=== PATIENT | female | born 1980 | race American Indian/Alaskan Native ===

== ENCOUNTER 2018-07-02 14:16 | Emergency (ER) | payer BC, OTHER ==
[2018-07-02 14:28] VITALS: RESP 16; O2SAT 100
[2018-07-02] MEDS ORDERED: Sodium Chloride 0.9% 1,000 ML IV STA (14:54)
--- NOTE | 2018-07-02 14:58 | ED PDOC ---
HPI: Chest Pain Time Seen by Provider: 07/02/18 14:41 Chief Complaint (Nursing): Chest Pain History Per: Patient Onset/Duration Of Symptoms: Hrs (2) Current Symptoms Are (Timing): Still Present Severity: Moderate Associated Symptoms: denies: Dyspnea, Syncope Modifying Factors: None Exacerbating Factors: None Alleviating Factors: None Additional Complaint(s): Chest pain assoc with palpitations x 2 hrs. Has been tx'ed for resp infection, has been on prednisone x 12 days. Non-productive cough. Denies fever or SOB. Denies calf pain or swelling. Denies lightheadedness. Past Medical History Vital Signs: Last Vital Signs Temp 98.0 F 07/02/18 14:26 Pulse 125 H 07/02/18 14:26 Resp 16 07/02/18 14:26 BP 175/101 H 07/02/18 14:26 Pulse Ox 100 07/02/18 14:26 - Medical History PMH: Asthma - Family History Family History: States: Unknown Family Hx - Allergies Allergies/Adverse Reactions: Allergies Allergy/AdvReac Type Severity Reaction Status Date / Time codeine Allergy RASH Verified 07/02/18 14:26 Review of Systems ROS Statement: Except As Marked, All Systems Reviewed And Found Negative Constitutional: Negative for: Fever Cardiovascular: Positive for: Chest Pain, Palpitations Respiratory: Positive for: Cough Neurological: Positive for: Dizziness Physical Exam - Reviewed Nursing Documentation Reviewed: Yes Vital Signs Reviewed: Yes - Physical Exam Appears: Positive for: Non-toxic, No Acute Distress Head Exam: Positive for: ATRAUMATIC, NORMAL INSPECTION, NORMOCEPHALIC Skin: Positive for: Normal Color, Warm, DRY Eye Exam: Positive for: EOMI, Normal appearance, PERRL ENT: Positive for: Normal ENT Inspection Neck: Positive for: Normal, Painless ROM Cardiovascular/Chest: Positive for: Regular Rate, Rhythm, Tachycardia Respiratory: Positive for: CNT, Normal Breath Sounds Gastrointestinal/Abdominal: Positive for: Normal Exam, Soft Back: Positive for: Normal Inspection Extremity: Positive for: Normal ROM. Negative for: Calf Tenderness, Swelling Neurologic/Psych: Positive for: Alert, Oriented - Laboratory Results Result Diagrams: 07/02/18 14:55 07/02/18 14:55 - ECG O2 Sat by Pulse Oximetry: 100 Medical Decision Making Medical Decision Making: Persistent tachycardia on mionitor despite IV hydration. Labs including Trop and thyroid studies nl. CT PE study neg EKG Sinus tach with no acute ST changes Advised 24 hr obs for continued hydratyion and cardio consult. Pt prefers to f/u outpt. Aware of risks including arrhythmia [place] and Advised to return to ED if sxs worsen. Disposition - Clinical Impression Clinical Impression: Tachycardia - Patient ED Disposition Is Patient to be Admitted: No Counseled Patient/Family Regarding: Studies Performed, Diagnosis, Need For Followup, Rx Given - Disposition Referrals: Shankar Virk MD [Staff Provider] - Disposition: Routine/Home Disposition Time: 18:59 Condition: FAIR Additional Instructions: Return immediately to ER if symptoms worsen Instructions: Sinus Tachycardia (DC) Forms: [employer] (Nepali)
[2018-07-02 15:12] LABS: BASO % 0.3 % (0.0-2.0); EOS % 0.4 % (0.0-4.0); HEMOGLOBIN 13.9 g/dL (12.0-16.0); LYMPH # 2.7 K/uL (1.0-4.3); LYMPH % 25.1 % (20.0-40.0); MEAN CELL VOLUME 92.9 fl (81.0-99.0); MEAN CORPUSCULAR HEMOGLOBIN 30.9 pg (27.0-31.0); MEAN CORPUSCULAR HGB CONC 33.2 g/dL (33.0-37.0); MEAN PLATELET VOLUME 8.5 fl (7.2-11.7); MONO # 0.8 K/uL (0.0-0.8); MONO % 7.7 % (0.0-10.0); NEUT # 7.1 K/uL (1.8-7.0); NEUT % 66.5 % (50.0-75.0); NRBC % 0.1 % (0.0-0.0); RBC 4.51 Mil/uL (3.80-5.20); RED CELL DISTRIBUTION WIDTH 13.2 % (11.5-14.5); WHITE BLOOD COUNT 10.6 K/uL (4.8-10.8)
[2018-07-02 15:39] LABS: ALB/GLOB RATIO 1.2 (1.0-2.1); ALBUMIN 4.5 g/dL (3.5-5.0); ALT/SGPT 30 U/L (9-52); AST/SGOT 29 U/L (14-36); BLOOD UREA NITROGEN 11 mg/dl (7-17); CALCIUM 9.7 mg/dL (8.4-10.2); GFR NON-AFRICAN AMERICAN > 60
[2018-07-02] MEDS ORDERED: Potassium Chloride 20 mEq ER Tab PO ONE ×2 (16:17→18:38)
--- NOTE | 2018-07-02 16:54 | RAD ---
HISTORY: Chest pain COMPARISON: None available. TECHNIQUE: Chest PA and lateral FINDINGS: Examination limited by habitus. LUNGS: No focal consolidation. Please note that chest x-ray has limited sensitivity for the detection of pulmonary masses. PLEURA: No significant pleural effusion identified. No definite pneumothorax . CARDIOVASCULAR: Heart size appears within normal limits. No atherosclerotic calcification present. OSSEOUS STRUCTURES: No acute osseous abnormality identified. VISUALIZED UPPER ABDOMEN: Unremarkable. OTHER FINDINGS: None. IMPRESSION: No focal consolidation.
[2018-07-02] MEDS ORDERED: Sodium Chloride 0.9% 50 ML IV ONE (17:15)
[2018-07-02] MEDS ORDERED: Iodixanol 320 MG/ML 100 ML BOTTLE IV ONE (17:15)
[2018-07-02 18:28] LABS: T4 10.9 ug/dl (5.5-11.0)
[2018-07-02 18:41] LABS: T3 0.935 nmol/L (1.49-2.60)
[2018-07-02 18:49] VITALS: BP 142/82; PULSE 98
[2018-07-02 19:11] VITALS: TEMP 98.1
--- NOTE | 2018-07-03 10:57 | CT ---
Date of service: 07/02/2018 CTA chest PE protocol Indication: tachycardia, chest pain Technique: Contiguous axial images were obtained through the chest with intravenous contrast enhancement. Sagittal and coronal reconstructions were generated and reviewed. This CT exam was performed using 1 or more of the following dose reduction techniques: Automated exposure control, adjustment of the MAA and/or kV according to patient size, and/or use of iterative reconstruction technique. IV contrast: 99 mL Visipaque 320 IV Radiation dose (DLP): 376.31 MGy-cm. Comparison: Chest x-ray performed 07/02/18 Findings: Visualized portions of the inferior thyroid gland appear unremarkable. The mediastinal and hilar vascular structures appear within normal limits. Mild cardiomegaly. No large central or segmental pulmonary embolus evident. No focal consolidation. No pleural effusion. No pneumothorax. No suspicious pulmonary nodules measuring greater than 5 mm. Limited visualized portions of the upper abdomen appear grossly unremarkable. No acute osseous abnormality is detected. Impression: No large central or segmental pulmonary embolus identified. Preliminary impression was provided by [employer].
--- NOTE | 2018-07-03 11:58 | CARD ---
APPROVED REPORT Date of service: 07/02/2018 EKG Measurement Heart [id number] <Conclusion> Sinus tachycardia Left ventricular hypertrophy Nonspecific ST and T wave abnormality Abnormal ECG
== END 2018-07-02 19:00 | disposition home or self-care (01) ==
LOC: H.ER 14:16
DX: R00.0 Tachycardia, unspecified (principal)
CPT/HCPCS: 71046; 71275; 80053; 81025; 84436; 84443; 84480; 84484; 85025; 85378; 93005; 99284; J7030; Q9967